=== PATIENT | male | born 1945 ===

== ENCOUNTER 2018-06-22 13:28 | Emergency (ER) | payer BC ==
--- NOTE | 2018-06-22 13:35 | Emergency Department Record ---
History of Present Illness - General Chief Complaint: Fall Injury Stated Complaint: FALL Time Seen by Provider: 06/22/18 13:33 Source: Patient, EMS Mode of Arrival: Stretcher Limitations: No limitations - History of Present Illness Initial Comments: 73 yo male presents after a fall. He was trying to get on a three wheeled scooter. His knee gave out and he fell back and hit his head. No LOC. No blood thinners. No nausea, vomiting, syncope, or dizziness. He was able to call his . No confusion or new altered mental status. He complains of mild left hip pain as well. He has a contusion to the posterior scalp. He is unsure of when his last tetanus shot was. He has had prior neck surgery 20 years ago. MD Complaint: Fall -: Minutes(s) Fall From: Standing When Fall Occurred: Just prior to arrival Fall Witnessed: Yes, by family Place Fall Occurred: Home Loss of Consciousness: None Prolonged Down Time?: No Symptoms Prior to Fall: None Location: Head Location - Extremities: Left: Thigh (Hip) Severity: Moderate Quality: Aching Associated Symptoms: Denies - [place] Coma Scale Eye Response: (4) Open spontaneously Motor Response: (6) Obeys commands Verbal Response: (5) Oriented Nguyen Total: 15 - Related Data Home Medications Medication Instructions Recorded Confirmed Last Taken Levetiracetam [Keppra] 1,000 mg PO BID 06/22/18 06/22/18 06/22/18 Metoprolol Tartrate 50 mg PO BID 06/22/18 06/22/18 06/22/18 Terazosin HCl 5 mg PO QHS 06/22/18 06/22/18 06/22/18 Allergies Allergy/AdvReac Type Severity Reaction Status Date / Time erythromycin base Allergy HYPERSENSIT Verified 06/22/18 13:50 IVITY Sulfa (Sulfonamide Allergy RASH Verified 06/22/18 13:50 Antibiotics) sulfamethoxazole Allergy RASH Verified 06/22/18 13:50 [From Bactrim] trimethoprim [From Bactrim] Allergy RASH Verified 06/22/18 13:50 Review of Systems Constitutional: Denies: Chills, Fever, Weakness Eyes: Denies: Eye discharge, Eye pain, Photophobia, Vision change ENT: Denies: Congestion, Throat pain Respiratory: Denies: Cough, Dyspnea Cardiovascular: Denies: Chest pain, Palpitations, Syncope Endocrine: Denies: Fatigue Gastrointestinal: Denies: Abdominal pain, Diarrhea, Nausea, Vomiting Genitourinary: Denies: Dysuria, Frequency, Hematuria Musculoskeletal: Reports: As per HPI, Arthralgia. Denies: Back pain Skin: Denies: Bruising, Change in color, Rash Neurological: Reports: Headache. Denies: Numbness, Tremors, Vertigo, Weakness Psychiatric: Denies: Anxiety Hematological/Lymphatic: Denies: Easy bleeding, Easy bruising, Swollen glands Physical Exam - General General Appearance: Alert, Oriented x3, Cooperative, No acute distress Limitations: No limitations - Head Head exam: negative: Atraumatic Head exam detail: Abrasion, Contusion Image of Face/Head: 1 - contusion, abrasion - Eye Eye exam: Normal appearance, PERRL, EOMI. negative: Conjunctival injection, Periorbital swelling, Periorbital tenderness, Scleral icterus - ENT ENT exam: Normal exam, Mucous membranes moist Ear exam: Normal external inspection Nasal Exam: Normal inspection Mouth exam: Normal external inspection - Neck Neck exam: Normal inspection - Respiratory Respiratory exam: Normal lung sounds bilaterally. negative: Respiratory distress - Cardiovascular Cardiovascular Exam: Regular rate, Normal rhythm, Normal heart sounds - GI/Abdominal GI/Abdominal exam: Soft. negative: Distended, Guarding, Tenderness - Rectal Rectal exam: Deferred - exam: Deferred - Extremities Extremities exam: Normal inspection, Full ROM, Normal capillary refill, Tenderness (mild left lateral tenderness, no pain with log roll). negative: Calf tenderness - Back Back exam: Denies: CVA tenderness (R), CVA tenderness (L), Muscle spasm, Tenderness, Vertebral tenderness - Neurological Neurological exam: Alert, Oriented X3. negative: Altered - Psychiatric Psychiatric exam: Normal affect, Normal mood. negative: Agitated, Anxious - Skin Skin exam: Abrasion Course - Reevaluation(s) Reevaluation #1: 06/22/18 14:58 The labs were reviewed. No acute changes on the CBC, CMP, or PT 06/22/18 15:31 The HCT was negative for acute process The Cervical CT was negative for acute injury. Significant chronic changes noted. See full report. The hips with pelvis were negative for acute process The Knee demonstrates significant tri-compartmental changes. We discussed fall prevention at home and the need for close follow up Medical Decision Making - Lab Data Result diagrams: 06/22/18 14:00 06/22/18 14:00 Disposition Disposition: Discharge Clinical Impression: Arthritis of knee, left Head contusion Qualifiers: Encounter type: initial encounter Contusion of head detail: scalp Qualified Code(s): S00.03XA - Contusion of scalp, initial encounter Disposition: Home, Self-Care Condition: (1) Good Instructions: Fall Prevention for Older Adults (ED) Additional Instructions: Call your doctor for the next available follow up appointment Review this ER visit and the tests performed with your family doctor Return to the ER for a recheck if worse, any new concerns or questions Use a walker at all times for support to help with your balance Follow up with your neurologist as scheduled Referrals: YUNIER DEL ROSARIO [DOCTOR OF OSTEOPATH] - [facility] [Provider Group] Forms: Patient Portal Access Time of Disposition: 15:33 Quality - Quality Measures Quality Measures: N/A, Blunt Head Trauma (>2yr) - [place] Coma Scale Nguyen Coma Scale: [place] Coma Scale Eye Response: (4) Open spontaneously Motor Response: (6) Obeys commands Verbal Response: (5) Oriented [place] Total: 15 - Blunt Head Trauma - Adult Quality Measure: Measure #415: Utilization of CT for Minor Blunt Head Trauma ICD10 Codes Entered: Yes Was CT ordered: Yes Does Patient Have Any of the Following: No Exclusions Patient Presented Within 24 Hours of Injury: Yes [place] Score: [address] for Minor Blunt Head Trauma: < CT Done, Appropriate Indication > [G9529] Additional Inclusion Criteria: Within 24hrs (AND) GCS of 15 (AND) CT ordered. [G9530] Indications For CT: Age 65 Years and Older - Blood Pressure Screening Does Patient Have Any of the Following: Active Dx of HTN Blood Pressure Classification: Hypertensive Reading Systolic Measurement: 162 Diastolic Measurement: 109 Screening for High Blood Pressure: Patient Exclusion, Hx of HTN [G9744]
[2018-06-22 14:07] LABS: ABSOLUTE NEUTROPHIL COUNT 3.03; BASO % 0.6 % (0-6); EOS % 2.9 % (0-6); GRAN % 62.9 % (47-80); HEMATOCRIT 47.8 % (42.0-52.0); HEMOGLOBIN 16.3 gm/dl (14.0-18.0); LYMPH % 24.5 % (16-45); MEAN CELL VOLUME 91.6 fl (81-97); MEAN CORPUSCULAR HEMOGLOBIN 31.2 pg (27-33); MEAN CORPUSCULAR HGB CONC 34.1 g/dl (32-36); MEAN PLATELET VOLUME 10.5 fl (7.4-10.4); MONO % 9.1 % (0-9); PLATELET COUNT 192 K/uL (130-400); RED BLOOD COUNT 5.22 M/uL (4.40-5.70); RED CELL DISTRIBUTION WIDTH 13.1 % (11.5-14.5); WHITE BLOOD COUNT W/O DIFF 4.8 K/uL (4.2-12.2)
[2018-06-22 14:17] LABS: BLOOD UREA NITROGEN 15 mg/dL (8-23); CREATININE 0.7 mg/dL (0.7-1.2); EST GLOMERULAR FILTRATION RATE > 60 mL/min
[2018-06-22 14:18] LABS: TOTAL PROTEIN 6.5 g/dL (6.6-8.7)
[2018-06-22 14:20] LABS: GLUCOSE,RANDOM 106 mg/dL (74-109); INR 1.1; PARTIAL THROMBOPLASTIN TIME 27.1 SECONDS (24.5-39.1); PROTHROMBIN TIME (PATIENT) 10.7 SECONDS (9.5-12.1)
[2018-06-22 14:22] LABS: ALT/SGPT 15 U/L (<41)
[2018-06-22 14:23] LABS: ALB/GLOB RATIO 1.7 (1.1-1.8); ALBUMIN 4.1 g/dL (4.0-5.0); ALKALINE PHOSPHATASE 68 U/L (40-129); AST/SGOT 19 U/L (10.0-50.0)
--- NOTE | 2018-06-24 23:32 | CT SCAN REPORT ---
EXAM: CT SCAN HEAD WO CONTRAST HISTORY: FELL AND HIT BACK OF HEAD ON CONCRETE. TECHNIQUE: Routine noncontrast CT examination of the head is performed. COMPARISON: No prior imaging of the brain available for comparison. FINDINGS: The ventricles and subarachnoid spaces are normal in size for age with mild age-related atrophy present. Mild periventricular and subcortical white matter lucencies are noted in each cerebral hemisphere, most pronounced in the parietal lobes. These are nonspecific but likely areas of chronic small vessel ischemia. No other area of abnormally increased or decreased or attenuation is noted throughout the brain substance. No skull fracture is identified. There is a small cephalohematoma in the left posterior parietal scalp. The visualized paranasal sinuses and mastoid air cells are clear. The orbits as visualized are unremarkable. Mild deformity of the nasal bones likely is chronic. IMPRESSION: 1. NO CT EVIDENCE OF AN ACUTE INTRACRANIAL ABNORMALITY NOR SKULL FRACTURE. 2. MILD AGE-RELATED ATROPHY. MILD WHITE MATTER LUCENCIES IN EACH CEREBRAL HEMISPHERE ARE CONSISTENT WITH CHRONIC MICROVASCULAR ISCHEMIA. 3. A SMALL CEPHALOHEMATOMA IN THE LEFT POSTERIOR PARIETAL SCALP. JOB NUMBER: [id number] [facility]
--- NOTE | 2018-06-24 23:37 | CT SCAN REPORT ---
EXAM: CT SCAN CERVICAL SPINE WO CONTRAST HISTORY: FELL AND HIT BACK OF HEAD. TECHNIQUE: Thin-collimation helical CT examination of the cervical spine is performed in the axial plane without intravenous contrast. Coronal and sagittal reformatted images are generated and reviewed. COMPARISON: No prior imaging of the cervical spine available for comparison. Same-day noncontrast CT of the head. FINDINGS: There is diffuse osteopenia. There is moderate reversal of the normal cervical lordosis centered at the C5-C6 level with evidence of fusion of the C5 and C6 vertebral bodies as well as the left lateral masses. There is minimal anterolisthesis of C3 on C4 measuring 2 mm. The vertebral bodies are otherwise normal in alignment and height. No convincing acute fracture, destructive bone lesion, or prevertebral soft tissue swelling. Multilevel degenerative disc/degenerative endplate changes are present, most pronounced at the mid and lower levels, where they are moderate in degree. There are chronic deformities of the lamina of C5 and C6 consistent with old healed fractures. There is plate and screw fixation of the C5 and C6 lamina on the left. The most medially positioned screw does appear to extend into the spinal canal by approximately 2 mm. No prior examination is available to determine if this represents its original position. There is likely borderline to mild central canal stenosis at the C5-C6 and C6-C7 levels. No other osseous cervical spinal stenosis. Multilevel bilateral neural foraminal narrowing is present due to uncovertebral joint and facet joint spurring. This is most pronounced at the C3-C4 level on the right and the C6-C7 level on the left, where it is moderate to severe. The right thyroid lobe is enlarged and heterogeneous with underlying nodules possible. If clinically warranted, this could be further evaluated with thyroid ultrasound. No other cervical mass nor adenopathy. The visualized lung apices are clear. IMPRESSION: 1. DIFFUSE OSTEOPENIA LIMITS EVALUATION. 2. MODERATE REVERSAL OF THE NORMAL CERVICAL LORDOSIS CENTERED AT THE C5-C6 LEVEL, WHERE THERE IS FUSION OF THE C5 AND C6 VERTEBRAL BODIES WELL THE LEFT LATERAL MASSES. THERE IS ALSO EVIDENCE OF OLD HEALED FRACTURES OF THE LAMINA OF C5 AND C6 WITH PLATE AND SCREW FIXATION OF THE LEFT LAMINA. THE MOST MEDIAL OF THESE SCREWS EXTENDS APPROXIMATELY 2 MM INTO THE SPINAL CANAL. THIS POSITION IS AGE-INDETERMINATE. 3. NO CONVINCING ACUTE FRACTURE, SUSPICIOUS SUBLUXATION, OR PREVERTEBRAL SOFT TISSUE SWELLING. 4. MULTILEVEL DEGENERATIVE CHANGES, DETAILED ABOVE. MINOR ANTEROLISTHESIS OF C3 ON C4, LIKELY RELATING TO ADVANCED FACET ARTHROPATHY. 5. THE RIGHT THYROID LOBE APPEARS ENLARGED WITH UNDERLYING NODULE/NODULES POSSIBLE. IF CLINICALLY WARRANTED, THIS COULD BE FURTHER EVALUATED WITH THYROID ULTRASOUND. [facility]BER: [id number] [facility]
--- NOTE | 2018-06-25 07:38 | RADIOLOGY REPORT ---
EXAM: HIP,BILATERAL W/PELVIS 2 VIEWS HISTORY: BILATERAL HIP PAIN. LEFT KNEE GIVING OUT. TECHNIQUE: An AP view of the pelvis is obtained as well as AP and frogleg lateral views of each hip. COMPARISON: None. ENCOUNTER: Initial. FINDINGS: There is borderline osteopenia diffusely. Total hip arthroplasty changes are noted bilaterally. The metallic prosthetic components appear well- seated. No complicating acute fracture nor dislocation. Chronic-appearing ossific densities project adjacent to the hip joints. There are degenerative changes of the visualized lower lumbar spine. Vascular calcifications are noted within the inferior pelvis. There is a rounded area of calcific density/sclerosis projecting at the level of the left iliac wing measuring 1.8 cm. This cannot be further localized. This may represent a bone island. Blastic neoplasm is less likely. J[facility]BER: [id number] [facility]
--- NOTE | 2018-06-25 07:40 | RADIOLOGY REPORT ---
EXAM: KNEE, LEFT 1 or 2 VIEWS HISTORY: KNEE GIVING OUT. FALL. TECHNIQUE: AP and lateral views of the left knee. COMPARISON: None. ENCOUNTER: Initial. FINDINGS: There is borderline osteopenia. No acute fracture, dislocation, or destructive bone lesion is seen. Tricompartmental osteoarthrosis is identified, moderate to advanced in the medial and lateral compartments and mild in the patellofemoral compartment. There is a borderline suprapatellar joint effusion. No focal soft tissue abnormality. IMPRESSION: TRICOMPARTMENTAL OSTEOARTHROSIS. NO ACUTE FRACTURE NOR DISLOCATION. BORDERLINE JOINT EFFUSION. [facility]: [id number] [facility]
== END 2018-06-22 16:00 | disposition home or self-care (01) ==
LOC: ER 13:28 → EDBD 13:28 → ER 16:00
DX: S00.03XA Contusion of scalp, initial encounter (principal); M25.552 Pain in left hip; M17.12 Unilateral primary osteoarthritis, left knee; I10 Essential (primary) hypertension; V00.831A Fall from motorized mobility scooter, initial encounter; Y92.008 Other place in unspecified non-institutional (private) residence as the place of occurrence of the external cause
CPT/HCPCS: 70450; 72125; 73521; 80053; 85025; 85610; 85730; 99283; 99284